=== PATIENT | male | born 1995 | race Caucasian/White ===

== ENCOUNTER 2018-09-17 16:37 | Emergency (ER) | payer MEDICAID, OTHER ==
[2018-09-17] MEDS ORDERED: IPRATROPIUM (NEB) 0.5 MG/2.5 ML AMP INH (16:55)
[2018-09-17] MEDS ORDERED: ALBUTEROL 0.083% (NEB) 2.5 MG/3 ML AMP INH (16:55)
[2018-09-17] MEDS: EPINEPHrine 1 MG INJ IM (17:02)
[2018-09-17] MEDS ORDERED: SOD CHLORIDE 0.9% 500 ML IV (17:04)
[2018-09-17] MEDS: DIPHENHYDRAMINE 50 MG INJ IV (17:07)
[2018-09-17] MEDS: DEXAMETHASONE 10 MG/ML 1 ML INJ IV (17:16)
[2018-09-17] MEDS: RANITIDINE 50 MG in SOD CHLORIDE 0.9% 50 ML IVPB (17:47)
== END 2018-09-17 20:58 | disposition home or self-care (01) ==
LOC: FTE 16:37
DX: K13.79 Other lesions of oral mucosa (principal); L50.9 Urticaria, unspecified
CPT/HCPCS: 96372; 96374; 96375; 99284-25